=== PATIENT | female | born 1955 | race African-American/Black ===

== ENCOUNTER 2019-10-17 15:28 | Emergency (ER) | payer MEDICAID ==
[~2019-10-17] VITALS: Ht 175.3 cm; Wt 91.0 kg
[2019-10-17] MEDS ORDERED: METF-815 PO (15:48)
[2019-10-17] MEDS ORDERED: ASPI-1160 PO (15:48)
[2019-10-17] MEDS ORDERED: LISI10TA5 PO (15:48)
[2019-10-17] MEDS ORDERED: KETOROLAC 30MG/ML VIAL IM ONE (16:00)
[2019-10-17 17:05] VITALS: BP 145/95
== END 2019-10-17 17:14 | disposition home or self-care (01) ==
LOC: ER 15:28
DX: M47.896 Other spondylosis, lumbar region (principal); M47.892 Other spondylosis, cervical region; G89.11 Acute pain due to trauma; I10 Essential (primary) hypertension; E11.9 Type 2 diabetes mellitus without complications; V49.59XA Passenger injured in collision with other motor vehicles in traffic accident, initial encounter; Y93.89 Activity, other specified; Y92.488 Other paved roadways as the place of occurrence of the external cause; Z79.82 Long term (current) use of aspirin; Z79.84 Long term (current) use of oral hypoglycemic drugs; Z79.899 Other long term (current) drug therapy
CPT/HCPCS: 72070; 72100; 96372; 99284; J1885